=== PATIENT | male | born 1990 | race Caucasian/White ===

== ENCOUNTER 2018-07-25 13:37 | Emergency (ER) | payer OTHER ==
[~2018-07-25] VITALS: Ht 170.2 cm; Wt 77.1 kg
[2018-07-25] MEDS ORDERED: IV NORMAL SALINE 1000ML BAG 1,000 ML IV ONE (14:00)
[2018-07-25 14:20] LABS: BASO % 0 % (0-3); EOS % 1 % (0-3); HEMATOCRIT 39.1 % (39.0-53.0); HEMOGLOBIN 13.5 g/dL (13.0-17.5); LYMPH # 1.6 x10^3/uL (1.0-4.8); LYMPH % 21 % (24-48); MEAN CORPUSCULAR HEMOGLOBIN 32 pg (25-35); MEAN CORPUSCULAR HGB CONC 34 g/dL (31-37); MEAN CORPUSCULAR VOLUME 92 fL (79-100); MONO % 14 % (0-9); NEUT # 4.8 x10^3uL (1.8-7.7); NEUT % 65 % (31-73); PLATELET COUNT 141 x10^3/uL (140-400); RED BLOOD COUNT 4.28 x10^6/uL (4.30-5.70); RED CELL DISTRIBUTION WIDTH 13.3 % (11.5-14.5); WHITE BLOOD COUNT 7.5 x10^3/uL (4.0-11.0)
--- NOTE | 2018-07-25 14:26 | RAD ---
CT of the head without contrast, 07/25/2018: HISTORY: Right-sided numbness The ventricles are within normal limits in size. There is no shift of the midline structures. There is no evidence of acute intracranial hemorrhage or mass effect. IMPRESSION: The CT of the head without contrast reveals no significant abnormality. Note: The findings were called to personnel the [facility] ER at 2:23 PM on 07/25/2018. Electronically signed by: Shashi Sorto MD (07/25/2018 2:23 PM) [facility]
--- NOTE | 2018-07-25 14:26 | RAD ---
EXAM: Chest, single view. HISTORY: Mental status changes. COMPARISON: None. FINDINGS: A frontal view of the chest is obtained. There is no infiltrate, pleural effusion or pneumothorax. The heart is normal in size. IMPRESSION: No acute pulmonary finding. Electronically signed by: Krystle Harmon MD (07/25/2018 2:23 PM) [place] [id number]
[2018-07-25 14:28] LABS: GFR 90.3; POTASSIUM 3.9 mmol/L (3.5-5.1)
[2018-07-25 14:31] LABS: PARTIAL THROMBOPLASTIN TIME 32 SEC (24-38); PROTHROMBIN TIME PATIENT 14.4 SEC (11.7-14.0)
[2018-07-25 14:34] LABS: ALBUMIN/GLOBULIN RATIO 1.3 (1.0-1.7); MAGNESIUM 1.9 mg/dL (1.8-2.4); TOTAL BILIRUBIN 1.5 mg/dL (0.2-1.0); TOTAL PROTEIN 7.2 g/dL (6.4-8.2)
[2018-07-25 14:35] LABS: D-DIMER < 0.27 ug/mlFEU (0.00-0.50)
--- NOTE | 2018-07-25 14:37 | EKG ---
[facility] [address] [place] [address] Test Date: 2018-07-25 Test Time: 14:19:11 Pat Name: GILMAR SIMS Department: Room: Gender: M Animal Care Supervisor: : 1990 Requested By: CHUCKY SNYDER Order Number: [id number] Reading MD: Schuyler Kessler MD Measurements Intervals [place] Rate: 85 P: -28 AR: 154 QRS: 31 QRSD: 94 T: 42 QT: 352 QTc: 419 Interpretive Statements SINUS RHYTHM Electronically Signed On 07-29-2018 11:55:44 CDT by Schuyler Kessler MD
--- NOTE | 2018-07-25 14:54 | RAD ---
Examination: Lower Extremity Venous Doppler Ultrasound History: Right calf pain Comparison: None Procedure: Lancaster scale, color flow 2D and spectal waveform analysis images are obtained with and without compression in the area of the common femoral vein, superficial femoral vein - femoral vein junction, main femoral vein (superficial femoral vein) and popliteal vein. Veins of the proximal calf are also imaged. Findings: There is normal duplex flow, color flow and compressibility of all visualized vein segments. No evidence of deep venous thrombus is present. Impression: No evidence of DVT in the visualized right lower extremity venous system. Electronically signed by: Bacilio Morillo MD (07/25/2018 2:52 PM) [id number]
--- NOTE | 2018-07-25 14:59 | PHYS DOC ---
Past Medical History Past Medical History: No Pertinent History Past Surgical History: No Surgical History Alcohol Use: Occasionally Drug Use: None Adult General Chief Complaint Chief Complaint: NEURO SYMPTOMS/DEFICITS HPI HPI Patient is a 28 year old male with no significant medical history current ICU nurse at [employer] who presents today stating he worked last night, got home around 7:00, dug a fire pit between 7 and 11 AM, took a shower and went to bed. He states he was awoken at 1330 with severe right calf pain. He states he was unable to move his right leg as well as his right arm. He states he was unable to speak. He states all his symptoms lasted approximately 2-4 minutes. He states he was able to call his dad. He states symptoms have resolved though he has a 2 out of 10 generalize aching headache as well as right calf pain. Patient denies any trauma. Denies any recent hospitalizations or surgeries. Denies any use of hormones steroids, denies any chest pain, denies any shortness of breath. Denies any personal family history of PEs or DVTs. Review of Systems Review of Systems Constitutional: Denies fever or chills [] Eyes: Denies change in visual acuity, redness, or eye pain [] HENT: Denies nasal congestion or sore throat [] Respiratory: Denies cough or shortness of breath [] Cardiovascular: No additional information not addressed in HPI [] GI: Denies abdominal pain, nausea, vomiting, bloody stools or diarrhea [] : Denies dysuria or hematuria [] Musculoskeletal: Reports pain to the right calf. Denies back pain Integument: Denies rash or skin lesions [] Neurologic: Reports numbness to the right upper extremity and right lower extremity. Denies headache, focal weakness or sensory changes [] All other systems were reviewed and found to be within normal limits, except as documented in this note. Current Medications Current Medications Current Medications Medications (Trade) Dose Ordered Sig/[place] Start Time Stop Time Status Last Admin Dose Admin Sodium Chloride 1,000 ml @ 1,000 mls/hr 1X ONCE 07/25/18 14:00 07/25/18 14:59 DC 07/25/18 14:46 1,000 MLS/HR Allergies Allergies Allergies Coded Allergies Type Severity Reaction Last Updated Verified No Known Drug Allergies 07/25/18 No Physical Exam Physical Exam Constitutional: Well developed, well nourished, no acute distress, non-toxic appearance. [] HENT: Normocephalic, atraumatic, bilateral external ears normal, oropharynx moist, no oral exudates, nose normal. [] Eyes: PERRLA, EOMI, conjunctiva normal, no discharge. [] Neck: Normal range of motion, no tenderness, supple, no stridor. [] Cardiovascular:Heart rate regular rhythm, no murmur [] Lungs & Thorax: Bilateral breath sounds clear to auscultation [] Abdomen: Bowel sounds normal, soft, no tenderness, no masses, no pulsatile masses. [] Skin: Warm, dry, no erythema, no rash. [] Back: No tenderness, no CVA tenderness. [] Extremities: No tenderness, no cyanosis, no clubbing, ROM intact, no edema. Negative Homans sign bilateral lower extremities. Neurologic: Alert and oriented X 3, normal motor function, normal sensory function, no focal deficits noted. Cranial nerves II through XII intact. Psychologic: Affect normal, judgement normal, mood normal. [] Current Patient Data Vital Signs Vital Signs Date Time Temp Pulse Resp B/P (MAP) Pulse Ox O2 Delivery O2 Flow Rate FiO2 07/25/18 15:30 84 16 97 07/25/18 13:47 97.9 131/80 (97) Room Air 97.9 Lab Values Laboratory Tests Test 07/25/18 13:52 07/25/18 14:09 07/25/18 15:20 Glucose (Fingerstick) 84 mg/dL (70-99) White Blood Count 7.5 x10^3/uL (4.0-11.0) Red Blood Count 4.28 x10^6/uL (4.30-5.70) L Hemoglobin 13.5 g/dL (13.0-17.5) Hematocrit 39.1 % (39.0-53.0) Mean Corpuscular Volume 92 fL (79-100) Mean Corpuscular Hemoglobin 32 pg (25-35) Mean Corpuscular Hemoglobin Concent 34 g/dL (31-37) Red Cell Distribution Width 13.3 % (11.5-14.5) Platelet Count 141 x10^3/uL (140-400) Neutrophils (%) (Auto) 65 % (31-73) Lymphocytes (%) (Auto) 21 % (24-48) L Monocytes (%) (Auto) 14 % (0-9) H Eosinophils (%) (Auto) 1 % (0-3) Basophils (%) (Auto) 0 % (0-3) Neutrophils # (Auto) 4.8 x10^3uL (1.8-7.7) Lymphocytes # (Auto) 1.6 x10^3/uL (1.0-4.8) Monocytes # (Auto) 1.0 x10^3/uL (0.0-1.1) Eosinophils # (Auto) 0.0 x10^3/uL (0.0-0.7) Basophils # (Auto) 0.0 x10^3/uL (0.0-0.2) Prothrombin Time 14.4 SEC (11.7-14.0) H Prothrombin Time INR 1.2 (0.8-1.1) H PTT 32 SEC (24-38) D-Dimer (Harriet) < 0.27 ug/mlFEU Sodium Level 141 mmol/L (136-145) Potassium Level 3.9 mmol/L (3.5-5.1) Chloride Level 106 mmol/L (98-107) Carbon Dioxide Level 30 mmol/L (21-32) Anion Gap 5 (6-14) L Blood Urea Nitrogen 16 mg/dL (8-26) Creatinine 1.0 mg/dL (0.7-1.3) Estimated GFR (Cockcroft-Gault) 90.3 BUN/Creatinine Ratio 16 (6-20) Glucose Level 83 mg/dL (70-99) Calcium Level 9.0 mg/dL (8.5-10.1) Magnesium Level 1.9 mg/dL (1.8-2.4) Total Bilirubin 1.5 mg/dL (0.2-1.0) H Aspartate Amino Transferase (AST) 21 U/L (15-37) Alanine Aminotransferase (ALT) 26 U/L (16-63) Alkaline Phosphatase 47 U/L (46-116) Creatine Kinase 308 U/L (39-308) Creatine Kinase MB (Mass) 2.3 ng/mL (0.0-3.6) Creatine Kinase MB Relative Index 0.7 % (0-4) Troponin I Quantitative < 0.017 ng/mL (0.000-0.055) FF-Uxf-R-Type Natriuretic Peptide 21 pg/mL (0-124) Total Protein 7.2 g/dL (6.4-8.2) Albumin 4.0 g/dL (3.4-5.0) Albumin/Globulin Ratio 1.3 (1.0-1.7) Lipase 191 U/L (73-393) Thyroid Stimulating Hormone (TSH) 4.267 uIU/mL (0.358-3.74) H Urine Collection Type Unknown Urine Color Yellow Urine Clarity Clear Urine pH 6.5 Urine Specific [place] >=1.030 Urine Protein Negative mg/dL (NEG-TRACE) Urine Glucose (UA) Negative mg/dL (NEG) Urine Ketones (Stick) Negative mg/dL (NEG) Urine Blood Negative (NEG) Urine Nitrite Negative (NEG) Urine Bilirubin Negative (NEG) Urine Urobilinogen Dipstick 1.0 mg/dL (0.2 mg/dL) Urine Leukocyte Esterase Negative (NEG) Urine RBC 0 /HPF (0-2) Urine WBC 0 /HPF (0-4) Urine Squamous Epithelial Cells Occ /LPF Urine Bacteria 0 /HPF (0-FEW) Urine Mucus Slight /LPF Urine Opiates Screen Neg (NEG) Urine Methadone Screen Neg (NEG) Urine Barbiturates Neg (NEG) Urine Phencyclidine Screen Neg (NEG) Urine Amphetamine/Methamphetamine Neg (NEG) Urine Benzodiazepines Screen Neg (NEG) Urine Cocaine Screen Neg (NEG) Urine Cannabinoids Screen Neg (NEG) Urine Ethyl Alcohol Neg (NEG) Laboratory Tests 07/25/18 14:09 Laboratory Tests 07/25/18 14:09 EKG EKG [] Radiology/Procedures Radiology/Procedures []PROCEDURE: PORTABLE CHEST 1V EXAM: Chest, single view. HISTORY: Mental status changes. COMPARISON: None. FINDINGS: A frontal view of the chest is obtained. There is no infiltrate, pleural effusion or pneumothorax. The heart is normal in size. IMPRESSION: No acute pulmonary finding. Electronically signed by: Krystle Spangler MD (07/25/2018 2:23 PM) [place] [id number] DICTATED and SIGNED BY: KRYSTLE SPANGLER MD DATE: 07/25/18 1423 PROCEDURE: CT CODE STROKE HEAD WO CT of the head without contrast, 07/25/2018: HISTORY: Right-sided numbness The ventricles are within normal limits in size. There is no shift of the midline structures. There is no evidence of acute intracranial hemorrhage or mass effect. IMPRESSION: The CT of the head without contrast reveals no significant abnormality. Note: The findings were called to personnel the [facility] ER at 2:23 PM on 07/25/2018. Electronically signed by: Shashi Sorto MD (07/25/2018 2:23 PM) [facility] DICTATED and SIGNED BY: SHASHI SORTO MD DATE: 07/25/18 1426 PROCEDURE: VENOUS LOWER EXTREMITY RIGHT Examination: Lower Extremity Venous Doppler Ultrasound History: Right calf pain Comparison: None Procedure: Lancaster scale, color flow 2D and spectal waveform analysis images are obtained with and without compression in the area of the common femoral vein, superficial femoral vein - femoral vein junction, main femoral vein (superficial femoral vein) and popliteal vein. Veins of the proximal calf are also imaged. Findings: There is normal duplex flow, color flow and compressibility of all visualized vein segments. No evidence of deep venous thrombus is present. Impression: No evidence of DVT in the visualized right lower extremity venous system. Electronically signed by: Bacilio Andersen MD (07/25/2018 2:52 PM) [id number] DICTATED and SIGNED BY: BACILIO ANDERSEN MD DATE: 07/25/18 3463 Course & Med Decision Making Course & Med Decision Making Pertinent Labs and Imaging studies reviewed. (See chart for details) This is a 28-year-old male patient presenting to the ED today with multiple complaints. See history of present illness. Patient woke up at 1:30 this afternoon with the right calf pain, numbness to the right arm and right lower extremity as well as inability to speak. Patient states symptoms are resolved with the exception over mild headache and right calf pain. Stroke scale is 0. CT of the head is negative for any acute findings, lab work including cardiac workup was negative. Chest x-ray is negative for any acute findings. Urine analysis is negative for infection, noted for dehydration with specific gravity greater than 1.030. Venous Doppler of the right lower extremity was negative for any acute findings. Patient was given a liter of fluids in the ED. He is feeling better. He'll be discharged with instructions to follow-up with his own PCP in the next 3-7 days. Also provided neurologist for follow-up. Instructed to push fluids. lorenza : I saw and evaluated this patient. Patient had no neurologic findings. CT head was done due to the initial history however on further questioning it became apparent that this was an anxiety attack after getting severe pain from a calf cramp. No signs of a CVA in the emergency room Dragon Disclaimer Dragon Disclaimer This electronic medical record was generated, in whole or in part, using a voice recognition dictation system. Departure Departure Impression: Primary Impression: Dehydration Disposition: HOME, SELF-CARE Condition: STABLE Referrals: CODY MOORE MD follow up next week Patient Instructions: Dehydration, Adult Additional Instructions: Your evaluation in the emergency room was negative for any acute findings. Your urine shows you are dehydrated. We recommend you push fluids. Follow up with a primary care doctor from the list provided in the course of this next week. Also consider following up with a neurologist. Please come back to the emergency room at any point your symptoms recur or you have new concerning symptoms. Scripts No Active Prescriptions or Reported Meds CHUCKY SNYDER APRN Jul 25, 2018 14:59 MIGUEL FOWLER MD Jul 26, 2018 18:48
[2018-07-25 15:30] VITALS: BP 118/67
[2018-07-25 15:33] LABS: BILIRUBIN,URINE NEGATIVE (NEG); CLARITY,URINE CLEAR; COLOR,URINE YELLOW; NITRITE,URINE NEGATIVE (NEG); PH,URINE 6.5; PROTEIN,URINE NEGATIVE (NEG-TRACE)
[2018-07-25 15:41] LABS: BARBITURATES NEG (NEG); BENZODIAZEPINES NEG (NEG); CANNABINOIDS NEG (NEG); COCAINE NEG (NEG); METHADONE NEG (NEG); OPIATES NEG (NEG); PHENCYCLIDINE NEG (NEG)
[2018-07-25 15:42] LABS: AMPHETAMINE/METHAMPHETAMINE NEG (NEG)
[2018-07-25 15:55] LABS: BACTERIA,URINE 0 /HPF (0-FEW); RBC,URINE 0 /HPF (0-2); SQUAMOUS EPITHELIAL CELL,UR OCC /LPF; WBC,URINE 0 /HPF (0-4)
== END 2018-07-25 16:34 | disposition home or self-care (01) ==
LOC: ER 13:37
DX: E86.0 Dehydration (principal); M79.661 Pain in right lower leg; R20.0 Anesthesia of skin
CPT/HCPCS: 36415; 70450; 71045; 80053; 80307; 81001; 82553; 82962; 83690; 83735; 83880; 84443; 84484; 85025; 85379; 85610; 85730; 93005; 93971; 96360; 99285; J7030; G0479